=== PATIENT | female | born 1980 | race Caucasian/White ===

== ENCOUNTER → 2016-07-07 | Outpatient (CLI) | payer BC ==
[~2016-07-07] MED LIST: METOPROLOL TARTRATE 5 MG/5 ML VIAL IVP ONE
--- NOTE | 2016-07-07 11:28 | ECHOS ---
DATE OF SERVICE: 07/07/2016 AGE: 36Y SEX: F HT: 64" WT: 398 lbs. Protocol Dennis: Others: Stage: Dur. of Exercise: 3:35 minutes *Heart Rate Blood Pressure *Rest: 68 Rest: 164/67 * *Max. Achieved: 158 Maximum BP: 212/118 85% PMHR: 155 100% PMHR: 182 *METS: 5.2 INDICATIONS: Chest pain. MEDICATIONS: See list. Stress data: Pretesting physical examination showed heart rate of 68, pressure is 164/76 mmHg. Baseline EKG shows sinus mechanism. The patient exercised on the treadmill according to Dennis protocol for a total of 3 minutes and 55 seconds and achieved 5.2 METs. Max heart rate was 158, which is about 86% of maximal predicted heart rate with a maximum blood pressure 213/82 mm/Hg. Clinically the patient did not have any symptoms of chest pain or discomfort. The EKG did not show any significant ST or T wave abnormalities consistent with ischemia. Echocardiogram images: On echocardiogram images ( ) views, ( ) short axis view, apical 4 chambers and apical 2 chamber ( ) the baseline images, at the peak of the heart rate, as well as on recovery and the echocardiogram images showed good augmentation in left ventricular systolic function without any evidence of wall motion abnormalities consistent with ischemia. CONCLUSION: 1. Poor exercise capacity. 2. Normal EKG in response to exercise. 3. Normal echocardiogram in response to exercise. 4. Hypertension, exaggerated, hypertension in response to exercise.
== END | disposition home or self-care (01) ==
LOC: RADNMMAIN 08:37
PROVIDERS: ATTEND Family Medicine
DX: I10 Essential (primary) hypertension (principal)
CPT/HCPCS: 93017; 93350

== ENCOUNTER → 2016-12-14 | Outpatient (CLI) | payer BC ==
--- NOTE | 2016-12-14 10:49 | MM ---
Reason for exam: screening (asymptomatic). Baseline mammogram. Physical Findings: Nurse did not find any significant physical abnormalities on exam. MG 3D Screening Mammo W/Cad Bilateral CC and MLO view(s) were taken. There are scattered fibroglandular densities. There is no discrete abnormality. These results were verbally communicated with the patient and result sheet given to the patient on 12/14/16. ASSESSMENT: Negative, BI-RAD 1 RECOMMENDATION: Routine screening mammogram of both breasts at age 38.
== END ==
LOC: RADMAMWWP 09:26
PROVIDERS: ATTEND Family Medicine
DX: Z12.31 Encounter for screening mammogram for malignant neoplasm of breast (principal)
CPT/HCPCS: 77063; G0202

== ENCOUNTER 2017-08-07 20:22 | Emergency (ER) | payer BC ==
[2017-08-07 20:28] VITALS: RESP 18; TEMP 98.2
[2017-08-07 20:48] LABS: Glucose,Whole Blood 90 mg/dL (75-99)
[2017-08-07] MEDS ORDERED: diphenhydrAMINE 50 MG/ML 1 ML VIAL IVP STA (20:54)
[2017-08-07] MEDS ORDERED: PROMETHAZINE INJ 25 MG/ML 1 ML VIAL IVPB STA (20:54)
[2017-08-07] MEDS ORDERED: KETOROLAC 60 MG/2 ML VIAL IVP STA (20:54)
[2017-08-07] MEDS ORDERED: SODIUM CHLORIDE 0.9% 1,000 ML IV ONE (20:55)
--- NOTE | 2017-08-07 20:58 | ED ---
General Adult HPI - General Source: patient, family, RN notes reviewed Mode of arrival: wheelchair Limitations: no limitations <Addison Burk - Last Filed: 08/07/17 21:11> <Addison Locke - Last Filed: 08/07/17 22:51> - General Chief complaint: Neuro Symptoms/Deficit Stated complaint: migraine/trouble swallowing - History of Present Illness Initial comments: This is a 37-year-old female presents emergency Department stating she's had a history of migraine headaches with some left-sided paralysis in the past. Patient states this has happened to her 9 or 10 times in the past. Patient comes in today because it happened again today per patient states a few hours prior to arrival she started getting a headache and then she thought it difficult to move her left arm and leg though she could move it. Patient states currently she can move everything just fine she only has a little tingling left in her left leg. Patient states the headache is still ongoing. Patient denies any fever chills. Patient denies any neck pain. Patient denies any chest pain difficulty breathing shortness of breath. Patient denies any visual disturbance or speech disturbance. (Addison Burk) - Related Data Home Medications Medication Instructions Recorded Confirmed Propranolol HCl [Inderal LA] 80 mg PO HS 01/16/15 08/07/17 ALPRAZolam [Xanax] 0.25 mg PO Q8HR PRN 06/29/15 08/07/17 Cholecalciferol [Vitamin D3] 5,000 unit PO DAILY 01/31/16 08/07/17 Acetaminophen [Tylenol Extra 1,000 mg PO Q6H PRN 08/07/17 08/07/17 Strength] Esomeprazole Magnesium [NexIUM] 20 mg PO HS 08/07/17 08/07/17 Multivitamin [Multivitamins Adult 1 tab PO DAILY 08/07/17 08/07/17 Gummies] Vitamin B Complex 1 cap PO DAILY 08/07/17 08/07/17 Allergies Allergy/AdvReac Type Severity Reaction Status Date / Time No Known Allergies Allergy Verified 08/07/17 21:04 Review of Systems ROS Other: All systems not noted in ROS Statement are negative. <Addison Burk - Last Filed: 08/07/17 21:11> ROS Other: All systems not noted in ROS Statement are negative. <Addison Locke - Last Filed: 08/07/17 22:51> ROS Statement: Those systems with pertinent positive or pertinent negative responses have been documented in the HPI. Past Medical History Additional Past Medical History / Comment(s): enlarged lymph nodes in the neck, palpable and sore at times. Lots of upper respiratory infections since early 2013. Hx of Cellulitis of the neck. Migraines, Menaire's Disease History of Any Multi-Drug Resistant Organisms: None Reported Past Surgical History: Section, Tonsillectomy Additional Past Surgical History / Comment(s): hx - meniere's Past Anesthesia/Blood Transfusion Reactions: No Reported Reaction Past Psychological History: No Psychological Hx Reported Smoking Status: Former smoker Past Alcohol Use History: Occasional Past Drug Use History: Marijuana - Past Family History Mother Family Medical History: No Reported History <Addison Burk - Last Filed: 08/07/17 21:11> General Exam Limitations: no limitations <Addison Burk - Last Filed: 08/07/17 21:11> General appearance: alert, in no apparent distress Head exam: Present: atraumatic, normocephalic, normal inspection Eye exam: Present: normal appearance, PERRL, EOMI. Absent: scleral icterus, conjunctival injection, periorbital swelling ENT exam: Present: normal exam, mucous membranes moist Neck exam: Present: normal inspection. Absent: tenderness, meningismus, lymphadenopathy Respiratory exam: Present: normal lung sounds bilaterally. Absent: respiratory distress, wheezes, rales, rhonchi, stridor Cardiovascular Exam: Present: regular rate, normal rhythm, normal heart sounds. Absent: systolic murmur, diastolic murmur, rubs, gallop, clicks GI/Abdominal exam: Present: soft, normal bowel sounds. Absent: distended, tenderness, guarding, rebound, rigid Extremities exam: Present: normal inspection, full ROM, normal capillary refill. Absent: tenderness, pedal edema, joint swelling, calf tenderness Back exam: Present: normal inspection Neurological exam: Present: alert, oriented X3, CN II-XII intact Psychiatric exam: Present: normal affect, normal mood Skin exam: Present: warm, dry, intact, normal color. Absent: rash <Addison Locke - Last Filed: 08/07/17 22:51> - General Exam Comments Initial Comments: GENERAL: Patient is well-developed and well-nourished. Patient is nontoxic and well- hydrated and is in mild distress. ENT: Neck is soft and supple. No significant lymphadenopathy is noted. Oropharynx is clear. Moist mucous membranes. Neck has full range of motion without eliciting any pain. EYES: The sclera were anicteric and conjunctiva were pink and moist. Extraocular movements were intact and pupils were equal round and reactive to light. Eyelids were unremarkable. PULMONARY: Unlabored respirations. Good breath sounds bilaterally. No audible rales rhonchi or wheezing was noted. CARDIOVASCULAR: There is a regular rate and rhythm without any murmurs gallops or rubs. ABDOMEN: Soft and nontender with normal bowel sounds. No palpable organomegaly was noted. There is no palpable pulsatile mass. SKIN: Skin is clear with no lesions or rashes and otherwise unremarkable. NEUROLOGIC: Patient is alert and oriented x3. Cranial nerves II through XII are grossly intact. Motor and sensory are also intact. Normal speech, volume and content. Symmetrical smile. When testing for extraocular motion she had no light sensitivity and full range of motion MUSCULOSKELETAL: Normal extremities with adequate strength and full range of motion. No lower extremity swelling or edema. No calf tenderness. LYMPHATICS: No significant lymphadenopathy is noted PSYCHIATRIC: Normal psychiatric evaluation. (Addison Burk) NIH of 0 (Addison Locke) Course <Addison Burk - Last Filed: 08/07/17 21:11> <Addison Locke - Last Filed: 08/07/17 22:51> Vital Signs 08/07/17 20:23 Temperature 98.2 F Pulse Rate 67 Respiratory 18 Rate Blood Pressure 159/99 O2 Sat by Pulse 100 Oximetry - Reevaluation(s) Reevaluation #1: 08/07/17 22:50 Symptoms resolved (Addison Locke) Medical Decision Making <Addison Burk - Last Filed: 08/07/17 21:11> <Addison Locke - Last Filed: 08/07/17 22:51> - Medical Decision Making Dr. Locke will be taking care of this patient at 9 PM (Addison Burk) 37 female the ER for evaluation presents for evaluation of headache and neurological complaint. Multiple history of CTs. Symptoms resolved headache resolved patient can be discharged home (Addison Locke) - Lab Data Lab Results 08/07/17 Range/Units 20:43 POC Glucose (mg/dL) 90 (75-99) mg/dL POC Glu Wink Cutter Operator ID Reyna Doty Disposition <Addison Burk - Last Filed: 08/07/17 21:11> <Addison Locke - Last Filed: 08/07/17 22:51> Clinical Impression: Migraine headache Disposition: HOME SELF-CARE Condition: Good Instructions: Acute Headache (ED), Migraine Headache (ED) Referrals: Johnny Lynch MD [Primary Care Provider] - 1-2 days
[2017-08-07] MEDS ORDERED: PROMETHAZINE INJ 25 MG in SODIUM CHLORIDE 0.9% 50 ML IVPB ONE (21:00)
[2017-08-07 23:03] VITALS: BP 99/53; PULSE 65
== END 2017-08-07 23:02 | disposition home or self-care (01) ==
LOC: EC 20:22
DX: G43.909 Migraine, unspecified, not intractable, without status migrainosus (principal); R20.2 Paresthesia of skin; Z87.891 Personal history of nicotine dependence; Z79.899 Other long term (current) drug therapy
CPT/HCPCS: 36415; 93005; 99284; 96365; 96375 ×2; 96361; J1200; J2550; J1885

== ENCOUNTER → 2019-03-21 | Outpatient (CLI) | payer BC ==
--- NOTE | 2019-03-22 12:13 | MM ---
Reason for exam: screening (asymptomatic). Last mammogram was performed 2 years and 3 months ago. Physical Findings: A clinical breast exam by your physician is recommended on an annual basis and results should be correlated with mammographic findings. MG Screening Mammo w CAD Bilateral CC and MLO view(s) were taken. Prior study comparison: December 14, 2016, bilateral MG 3d screening mammo w/cad. The breast tissue is heterogeneously dense. This may lower the sensitivity of mammography. No significant changes when compared with prior studies. ASSESSMENT: Benign, BI-RAD 2 RECOMMENDATION: Routine screening mammogram of both breasts in 1 year.
== END | disposition home or self-care (01) ==
LOC: RADMAMWWP 16:07
PROVIDERS: ATTEND Family Medicine
DX: Z12.31 Encounter for screening mammogram for malignant neoplasm of breast (principal)
CPT/HCPCS: 77067

== ENCOUNTER 2020-01-02 09:06 | Emergency (ER) | payer BC ==
[2020-01-02 09:10] VITALS: TEMP 98.4
--- NOTE | 2020-01-02 09:22 | ED ---
SOB HPI - General Chief Complaint: Shortness of Breath Stated Complaint: SOB, weakness Time Seen by Provider: 01/02/20 09:12 Source: patient, RN notes reviewed, old records reviewed Mode of arrival: wheelchair Limitations: no limitations - History of Present Illness Initial Comments: Patient is a 39-year-old female presents today with shortness of breath cough and cold for the past week. Patient states that she was seen by her PCP 2 days ago and started on azithromycin. She states she's feeling worse improved since that time. Patient denies any vomiting but does complain of just some general nausea. 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 She states that she has had a burning pain with taking a deep breath in her lungs in the lower ribs. She reports that her symptoms initially started out with ear congestion and sore throat which seemed to settle into her lungs. She states that she is a former smoker and quit 6 months ago. She denies any previous cardiac history. - Related Data Home Medications Medication Instructions Recorded Confirmed Propranolol HCl [Inderal LA] 80 mg PO HS 01/16/15 01/02/20 ALPRAZolam [Xanax] 0.25 mg PO Q8HR PRN 06/29/15 01/02/20 Esomeprazole Magnesium [NexIUM] 20 mg PO HS 08/07/17 01/02/20 Atomoxetine HCl [Strattera] 18 mg PO DIRECTED 01/02/20 01/02/20 Atomoxetine HCl [Strattera] 25 mg PO DIRECTED 01/02/20 01/02/20 Azithromycin [Zithromax Z-pack] See Taper PO DIRECTED 01/02/20 01/02/20 Meclizine [Antivert] 12.5 mg PO Q8HR PRN 01/02/20 01/02/20 methylPREDNISolone [Medrol Dose See Taper PO DIRECTED 01/02/20 01/02/20 Pack] Previous Rx's Medication Instructions Recorded Albuterol Inhaler [Ventolin Hfa 1 puff INHALATION RT-QID #1 puff 01/02/20 Inhaler] Levofloxacin [Levaquin] 750 mg PO DAILY 5 Days #5 tab 01/02/20 predniSONE 50 mg PO DAILY #5 tab 01/02/20 Allergies Allergy/AdvReac Type Severity Reaction Status Date / Time No Known Allergies Allergy Verified 01/02/20 10:22 Review of Systems ROS Statement: Those systems with pertinent positive or pertinent negative responses have been documented in the HPI. ROS Other: All systems not noted in ROS Statement are negative. Past Medical History Additional Past Medical History / Comment(s): enlarged lymph nodes in the neck. Hx of Cellulitis of the neck. Migraines, Menaire's Disease History of Any Multi-Drug Resistant Organisms: None Reported Past Surgical History: Section, Tonsillectomy Additional Past Surgical History / Comment(s): hx - meniere's Past Anesthesia/Blood Transfusion Reactions: No Reported Reaction Past Psychological History: No Psychological Hx Reported Smoking Status: Former smoker Past Alcohol Use History: Occasional Past Drug Use History: Marijuana - Past Family History Mother Family Medical History: No Reported History General Exam - General Exam Comments Initial Comments: 39-year-old female. Alert and oriented. Limitations: no limitations General appearance: alert, in no apparent distress Head exam: Present: atraumatic, normocephalic, normal inspection Eye exam: Present: normal appearance, PERRL, EOMI. Absent: scleral icterus, conjunctival injection, periorbital swelling ENT exam: Present: normal exam, mucous membranes moist Neck exam: Present: normal inspection. Absent: tenderness, meningismus, lymphadenopathy Respiratory exam: Present: normal lung sounds bilaterally, other (No significant wheezing or diminished lung sounds at this time. Patient does have a dry cough.). Absent: respiratory distress, wheezes, rales, rhonchi, stridor Cardiovascular Exam: Present: regular rate, normal rhythm, normal heart sounds. Absent: systolic murmur, diastolic murmur, rubs, gallop, clicks GI/Abdominal exam: Present: soft, normal bowel sounds. Absent: distended, te nderness, guarding, rebound, rigid Extremities exam: Present: normal inspection, full ROM, normal capillary refill. Absent: tenderness, pedal edema, joint swelling, calf tenderness Back exam: Present: normal inspection Neurological exam: Present: alert, oriented X3, CN II-XII intact Psychiatric exam: Present: normal affect, normal mood Skin exam: Present: warm, dry, intact, normal color. Absent: rash Course Vital Signs 01/02/20 09:08 Temperature 98.4 F Pulse Rate 58 L Respiratory 18 Rate Blood Pressure 123/82 O2 Sat by Pulse 98 Oximetry Medical Decision Making - Medical Decision Making 39-year-old female presents emergency department today yet for concern for cough, shortness of breath for the past week. Patient at this time states that she's been more progressive cough and feeling more winded. 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 This time her vital signs of an stable oxygen sats have been 9800% on room air. Patient does have a dry cough. Her lungs are relatively clear no wheezing or diminished lung sounds bilaterally. Chest x-ray shows an increased airspace opacity on the left lung base. Patient's white blood cell count is mildly elevated at 14,000 but she does report that she was started on a Medrol Dosepak by her PCP this week. Patient and also is a former smoker. This initially given a dose of Rocephin to cover for community-acquired pneumonia. I discussed switching the antibiotic to Levaquin. Discussed case with Dr. Burk. Advised Patient she should still self quarantined until known positive or negative infection for Coban 19. Patient is agreeable to treatment plan will comply. - Lab Data Result diagrams: 01/02/20 09:32 01/02/20 09:32 Lab Results 01/02/20 01/02/20 01/02/20 Range/Units 09:32 09:32 09:32 WBC 14.3 H (3.8-10.6) k/uL RBC 4.54 (3.80-5.40) m/uL Hgb 13.6 (11.4-16.0) gm/dL Hct 41.5 (34.0-46.0) % MCV 91.3 (80.0-100.0) fL MCH 29.9 (25.0-35.0) pg MCHC 32.8 (31.0-37.0) g/dL RDW 12.3 (11.5-15.5) % Plt Count 237 (150-450) k/uL Neutrophils % 66 % Lymphocytes % 27 % Monocytes % 4 % Eosinophils % 1 % Basophils % 1 % Neutrophils # 9.4 H (1.3-7.7) k/uL Lymphocytes # 3.9 (1.0-4.8) k/uL Monocytes # 0.6 (0-1.0) k/uL Eosinophils # 0.1 (0-0.7) k/uL Basophils # 0.1 (0-0.2) k/uL PT 9.5 (9.0-12.0) sec INR 0.9 (<1.2) APTT 24.3 (22.0-30.0) sec D-Dimer 0.26 (<0.60) mg/L FEU Sodium 138 (137-145) mmol/L Potassium 3.8 (3.5-5.1) mmol/L Chloride 105 (98-107) mmol/L Carbon Dioxide 26 (22-30) mmol/L Anion Gap 7 mmol/L BUN 10 (7-17) mg/dL Creatinine 0.48 L (0.52-1.04) mg/dL Est GFR (CKD-EPI)AfAm >90 (>60 ml/min/1.73 sqM) Est GFR (CKD-EPI)NonAf >90 (>60 ml/min/1.73 sqM) Glucose 92 (74-99) mg/dL Plasma Lactic Acid Dawson (0.7-2.0) mmol/L Calcium 9.5 (8.4-10.2) mg/dL Magnesium 2.1 (1.6-2.3) mg/dL Total Bilirubin 0.3 (0.2-1.3) mg/dL AST 18 (14-36) U/L ALT 12 (4-34) U/L Alkaline Phosphatase 72 (38-126) U/L Lactate Dehydrogenase 348 (313-618) U/L C-Reactive Protein <5.0 (<10.0) mg/L Total Protein 6.8 (6.3-8.2) g/dL Albumin 3.9 (3.5-5.0) g/dL 01/02/20 Range/Units 09:32 WBC (3.8-10.6) k/uL RBC (3.80-5.40) m/uL Hgb (11.4-16.0) gm/dL Hct (34.0-46.0) % MCV (80.0-100.0) fL MCH (25.0-35.0) pg MCHC (31.0-37.0) g/dL RDW (11.5-15.5) % Plt Count (150-450) k/uL Neutrophils % % Lymphocytes % % Monocytes % % Eosinophils % % Basophils % % Neutrophils # (1.3-7.7) k/uL Lymphocytes # (1.0-4.8) k/uL Monocytes # (0-1.0) k/uL Eosinophils # (0-0.7) k/uL Basophils # (0-0.2) k/uL PT (9.0-12.0) sec INR (<1.2) APTT (22.0-30.0) sec D-Dimer (<0.60) mg/L FEU Sodium (137-145) mmol/L Potassium (3.5-5.1) mmol/L Chloride (98-107) mmol/L Carbon Dioxide (22-30) mmol/L Anion Gap mmol/L BUN (7-17) mg/dL Creatinine (0.52-1.04) mg/dL Est GFR (CKD-EPI)AfAm (>60 ml/min/1.73 sqM) Est GFR (CKD-EPI)NonAf (>60 ml/min/1.73 sqM) Glucose (74-99) mg/dL Plasma Lactic Acid Dawson 1.3 (0.7-2.0) mmol/L Calcium (8.4-10.2) mg/dL Magnesium (1.6-2.3) mg/dL Total Bilirubin (0.2-1.3) mg/dL AST (14-36) U/L ALT (4-34) U/L Alkaline Phosphatase (38-126) U/L Lactate Dehydrogenase (313-618) U/L C-Reactive Protein (<10.0) mg/L Total Protein (6.3-8.2) g/dL Albumin (3.5-5.0) g/dL 01/02/20 09:41 EKG performed at 9:36 AM shows sinus bradycardia otherwise normal EKG. Ventricular rate of 52 bpm. [place] interval is 152 ms. QS duration is 100 ms. QT QTc is 442/411 ms. - Radiology Data Radiology results: report reviewed Chest x-ray shows asymmetric airspace opacity over the left lung base. Disposition Clinical Impression: Pneumonia Disposition: HOME SELF-CARE Condition: Good Instructions (If sedation given, give patient instructions): Pneumonia (ED) Additional Instructions: Take the meds as prescribed. Follow-up with your primary care physician. Return to the emergency department if any alarming signs or symptoms occur. Prescriptions: Levofloxacin [Levaquin] 750 mg PO DAILY 5 Days #5 tab predniSONE 50 mg PO DAILY #5 tab Albuterol Inhaler [Ventolin Hfa Inhaler] 1 puff INHALATION RT-QID #1 puff Is patient prescribed a controlled substance at d/c from ED?: No Referrals: Johnny Lynch MD [Primary Care Provider] - 1-2 days Time of Disposition: 11:09
[2020-01-02 09:42] LABS: Basophils # (A) 0.1 k/uL (0-0.2); Basophils % (A) 1 %; Eosinophils # (A) 0.1 k/uL (0-0.7); Eosinophils % (A) 1 %; HCT 41.5 % (34.0-46.0); HGB 13.6 gm/dL (11.4-16.0); Lymphocytes # (A) 3.9 k/uL (1.0-4.8); Lymphocytes % (A) 27 %; MCH 29.9 pg (25.0-35.0); MCHC 32.8 g/dL (31.0-37.0); MCV 91.3 fL (80.0-100.0); Mean Platelet Volume 8.4; Monocytes # (A) 0.6 k/uL (0-1.0); Monocytes % (A) 4 %; Neutrophils # (A) 9.4 k/uL (1.3-7.7); Neutrophils % (A) 66 %; Platelet Count 237 k/uL (150-450); RBC 4.54 m/uL (3.80-5.40); RDW 12.3 % (11.5-15.5); WBC 14.3 k/uL (3.8-10.6)
[2020-01-02 09:54] LABS: ALT 12 U/L (4-34); AST 18 U/L (14-36); African American GFR (CKD) >90 (>60 ml/min/1.73 sqM); Albumin 3.9 g/dL (3.5-5.0); Alkaline Phosphatase 72 U/L (38-126); Anion Gap 7 mmol/L; Blood Urea Nitrogen 10 mg/dL (7-17); C Reactive Protein <5.0 mg/L (<10.0); Calcium 9.5 mg/dL (8.4-10.2); Carbon Dioxide 26 mmol/L (22-30); Chloride 105 mmol/L (98-107); Glucose 92 mg/dL (74-99); LDH 348 U/L (313-618); Magnesium 2.1 mg/dL (1.6-2.3); Non-African American GFR(CKD) >90 (>60 ml/min/1.73 sqM); Potassium 3.8 mmol/L (3.5-5.1); Sodium 138 mmol/L (137-145); Total Bilirubin 0.3 mg/dL (0.2-1.3); Total Protein 6.8 g/dL (6.3-8.2)
[2020-01-02 09:59] LABS: D-Dimer 0.26 mg/L FEU (<0.60); INR 0.9 (<1.2); Partial Thromboplastin Time 24.3 sec (22.0-30.0); Prothrombin Time 9.5 sec (9.0-12.0)
--- NOTE | 2020-01-02 10:17 | XR ---
EXAMINATION TYPE: XR chest 1V portable DATE OF EXAM: 01/02/2020 CLINICAL HISTORY: Possible Covid 19 pneumonia. TECHNIQUE: Frontal portable view of the chest obtained. COMPARISON: Chest radiograph 07/04/2014 FINDINGS: The cardiomediastinal silhouette is within normal limits for size. Pulmonary vasculature i s normal. There is overlying soft tissue density overlapping the bilateral lung bases. There is asymm etric opacity over the late left lung base. No pleural effusion or pneumothorax seen. The osseous str uctures are intact. IMPRESSION: Asymmetric airspace opacity over the left lung base.
[2020-01-02] MEDS ORDERED: cefTRIAXone IN SWFI 1,000 MG/10 ML SYRINGE IVP STA (10:56)
[2020-01-02 11:34] VITALS: BP 125/80; PULSE 69; RESP 22
[2020-01-02 16:18] LABS: Ferritin 42.8 ng/mL (10.0-291.0)
== END 2020-01-02 11:46 | disposition home or self-care (01) ==
LOC: EC 09:06
DX: J18.9 Pneumonia, unspecified organism (principal); Z79.899 Other long term (current) drug therapy; Z87.891 Personal history of nicotine dependence
CPT/HCPCS: 36415; 71045; 80053; 82728; 83605; 83615; 83735; 84145; 85025; 85379; 85610; 85730; 86140; 87040; 93005; 96374; 99285

== ENCOUNTER → 2020-03-04 | Outpatient (CLI) | payer BC ==
[2020-03-04 08:00] LABS: Basophils # (A) 0.1 k/uL (0-0.2); Basophils % (A) 1 %; Eosinophils # (A) 0.1 k/uL (0-0.7); Eosinophils % (A) 1 %; Lymphocytes # (A) 3.1 k/uL (1.0-4.8); Lymphocytes % (A) 33 %; MCH 30.6 pg (25.0-35.0); MCHC 32.6 g/dL (31.0-37.0); MCV 93.9 fL (80.0-100.0); Mean Platelet Volume 8.3; Monocytes # (A) 0.5 k/uL (0-1.0); Monocytes % (A) 5 %; Neutrophils # (A) 5.6 k/uL (1.3-7.7); Neutrophils % (A) 59 %; Platelet Count 211 k/uL (150-450); RBC 4.58 m/uL (3.80-5.40); RDW 12.2 % (11.5-15.5); WBC 9.4 k/uL (3.8-10.6)
== END | disposition home or self-care (01) ==
LOC: LABWHC1 07:03
PROVIDERS: ATTEND Obstetrics & Gynecology Obstetrics
DX: Z01.818 Encounter for other preprocedural examination (principal); N92.0 Excessive and frequent menstruation with regular cycle; Z30.2 Encounter for sterilization
CPT/HCPCS: 36415; 85025

== ENCOUNTER 2020-03-10 09:24 | Day surgery (SDC) | payer BC ==
[2020-03-06 11:37] VITALS: BMI 53.1
[~2020-03-10 09:24] MED LIST changes: +DEXAMETHASONE SOD PHOSPHATE 10 MG/ML 1 ML VIAL IV ONE; +HYDROmorphone 0.5 MG/0.5 ML SYRINGE IVP PRN; +LACTATED RINGERS 1,000 ML IV SCH; -METOPROLOL TARTRATE 5 MG/5 ML VIAL IVP ONE; +ONDANSETRON 4 MG/2 ML VIAL IVP ONE; +Pre Op ABX Message 1 EACH MISC MISCELLANE ONE; +SCOPOLAMINE 1.5MG/72HR PATCH TRANSDERM ONE
[2020-03-10] MEDS ORDERED: SILVER NITRATE APPLICATOR 1 EACH STICK..EA. TOPICAL ONE (09:45)
[2020-03-10] MEDS ORDERED: BUPIVACAINE (PF) 0.25% 30 ML VIAL SQ ONE ×2 (09:45)
[2020-03-10] MEDS ORDERED: LIDOCAINE URO-JET JELLY 2% 5 ML KIT URETHRAL ONE (09:45)
[2020-03-10] MEDS ORDERED: ROCURONIUM 10 MG/ML (10 ML VIAL) IV ONE (10:23)
[2020-03-10] MEDS ORDERED: GLYCOPYRROLATE 0.2 MG/ML 2 ML VIAL ONE (10:23)
[2020-03-10] MEDS ORDERED: ALBUTEROL INHALER 60 PUFF/8 GM INHALER (MHU) INHALATION ONE (10:23)
[2020-03-10] MEDS ORDERED: fentaNYL (PF) 50 MCG/ML 2 ML AMP ONE (10:23)
[2020-03-10] MEDS ORDERED: NEOSTIGMINE 1 MG/ML 10 ML VIAL ONE (10:23)
[2020-03-10] MEDS ORDERED: HYDROmorphone (PF) 1 MG/ML ONE (10:23)
[2020-03-10] MEDS ORDERED: ACETAMINOPHEN IV (For NPO) 1,000 MG/100 ML VIAL ONE (10:23)
[2020-03-10] MEDS ORDERED: PROPOFOL 10 MG/ML 20 ML VIAL IV ONE (10:23)
[2020-03-10] MEDS ORDERED: diphenhydrAMINE 50 MG/ML 1 ML VIAL ONE (10:23)
[2020-03-10] MEDS ORDERED: MIDAZOLAM 2 MG/2 ML VIAL ONE (10:23)
[2020-03-10] MEDS ORDERED: SUCCINYLCHOLINE CHLORIDE 100 MG/5 ML SYR IV ONE (10:23)
--- NOTE | 2020-03-10 11:19 | P.OP ---
Date of Procedure: 03/10/20 Procedure(s) Performed: PREOPERATIVE DIAGNOSIS: Morbid obesity POSTOPERATIVE DIAGNOSIS: Same PROCEDURE: Laparoscopy, initiation of pneumoperitoneum SURGEON: Radha EBL: Minimal ANESTHESIA: General COMPLICATIONS: None OPERATIVE PROCEDURE: Patient was in the operating room for planned tubal ligation by gynecology. Prior to my arrival attempts at pneumoperitoneum through an umbilical approach was unsuccessful. I was called to assist with obtaining pneumoperitoneum. A small 5 mm incision was made in the left upper quadrant at that time. Entrance into the perineal cavity occurred using the optical trocar. As we initiated pneumoperitoneum we identified that the trocar was then easily omentum. The omentum was noted to drop away from the abdominal wall with further insufflation. No bleeding or bile was noted in the vicinity. The umbilical site was inspected. There was no evidence of any peritoneal penetration from the previous attempts. The remainder of the case will be dictated by Dr. Nelson. DISPOSITION: Stable to recovery room
--- NOTE | 2020-03-10 11:43 | P.OP ---
Date of Procedure: 03/10/20 Preoperative Diagnosis: Family status complete, menorrhagia Postoperative Diagnosis: Same Procedure(s) Performed: Laparoscopic tubal ligation with Filshie clips, hysteroscopy, dilation and curettage, endometrial ablation, NovaSure Anesthesia: SHADE Surgeon: Selam Nelson Estimated Blood Loss (ml): 15 IV fluids (ml): 800 Urine output (ml): 100 Pathology: other (Endometrial curettings) Condition: stable Disposition: PACU Indications for Procedure: Heavy menstrual bleeding. Operative Findings: Morbidly obese abdomen. With attempted umbilical entry to the abdomen subcutaneous bleeding was noted stable at end of procedure. Uterus noted to be slightly enlarged, normal ovaries were appreciated, right hemorrhagic ovarian cyst is appreciated. Description of Procedure: Patient was taken back to the operating suite where general anesthesia was obtained without difficulty by the anesthesia department. She was prepped and draped in the normal sterile fashion in the dorsal lithotomy position. A weighted speculum was placed in the posterior vaginal vault, the anterior lip of the cervix is visualized and grasped with a single-tooth tenaculum. An acorn uterine manipulator was advanced into the cervix as a means to manipulate during the tubal ligation. Attention then turned the abdomen where lateral to the umbilicus a small skin incision is made through this incision the Veress needles placed. Failed attempt at entry with varies placement. An additional 2 attempts of a visual entry with the trocar were attempted, bleeding in the subcutaneous tissue was noted, therefore Dr. Garcia entered the operating suite to enter the abdomen and the left upper quadrant. Small hematoma/bruising was noted on the right lateral abdomen from prior entry. Stable at the end of the procedure. An additional port site was placed in the right lateral abdomen under direct visualization. The Filshie clip applicator was opened and both fallopian tubes were occluded per acoustical tile drill press operator's instruction. Small amount of bleeding was noted from the right lateral site was removed. No further bleeding was noted at the end of the procedure. CO2 was turned off and no further bleeding was noted. All instrument removed from the patient's abdomen at this time. Skin incisions were closed with 4-0 Vicryl in a subarticular fashion. Suture strips and sterile dressings were applied. Lidocaine was then instilled at the incision sites. Attention then turned the patient's vaginal vault where the acorn uterine manipulator was removed without difficulty. The endocervical canal was dilated to 18-Italian. A hysteroscope was placed through the cervix and toward the uterus intact cavity was noted with no appreciable Juwan male these. At this time the NovaSure device was opened. A sharp curettage was performed at this time. The NovaSure was set to the appropriate measurements for the patient's uterus. After the cavity assessment was passed the cycle was allowed to complete. Afterwards the NovaSure was removed without difficulty. The single-tooth tenaculum was taken off of the anterior lip of the cervix. Hemostasis was appreciated. All counts were noted to be correct 2 at the end of this procedure. Patient was taken to the recovery room awake in stable condition.
[2020-03-10] MEDS ORDERED: LACTATED RINGERS 1,000 ML IV ONE (11:59)
[2020-03-10 12:04] VITALS: TEMP 97.3
[2020-03-10] MEDS ORDERED: ONDANSETRON 4 MG/2 ML VIAL IVP ONE (12:18)
[2020-03-10 12:23] VITALS: RESP 16
[2020-03-10 13:27] VITALS: BP 135/78; PULSE 63
== END 2020-03-10 13:32 | disposition home or self-care (01) ==
LOC: OR 09:24
PROVIDERS: ATTEND Obstetrics & Gynecology Obstetrics
DX: N92.0 Excessive and frequent menstruation with regular cycle (principal); Z30.2 Encounter for sterilization; K66.8 Other specified disorders of peritoneum; N83.201 Unspecified ovarian cyst, right side; F41.9 Anxiety disorder, unspecified; G43.909 Migraine, unspecified, not intractable, without status migrainosus; G35 Multiple sclerosis; E66.01 Morbid (severe) obesity due to excess calories; H81.09 Meniere's disease, unspecified ear; R59.1 Generalized enlarged lymph nodes; Z98.84 Bariatric surgery status; Z79.899 Other long term (current) drug therapy; Z98.891 History of uterine scar from previous surgery; Z87.891 Personal history of nicotine dependence; Z68.43 Body mass index [BMI] 50.0-59.9, adult
CPT/HCPCS: 58563; 58671; 81025; 88305; J2250; J1200; J1100; J2710; J2405; J3010; J1170 ×2; J0131; J0330; J2704

== ENCOUNTER → 2021-06-12 | Outpatient (CLI) | payer BC ==
--- NOTE | 2021-06-12 15:10 | US ---
EXAMINATION TYPE: US thyroid st tissue head/neck DATE OF EXAM: 06/12/2021 COMPARISON: US CLINICAL HISTORY: R22.1 Lump in Neck. Palpable midline lower neck and inferior to thyroid. GLAND SIZE: Right Lobe: 5.3 x 1.8 x 1.7 cm Overall Parenchyma: homogenous Left Lobe: 5.0 x 1.7 x 1.1 cm Overall Parenchyma: homogeneous Isthmus Thickness: 0.7 cm NODULES RIGHT: # of nodules measured on right: 0 LEFT: # of nodules measured on left: 1 1. 0.5 X 0.3 x 0.4 cm, upper pole, mixed, hypoechoic nodule, which is taller than wide, with ill-de fined margins, without echogenic foci. ISTHMUS: # of nodules measured in the isthmus: 0 Bilateral neck scanned: no evidence of lymphadenopathy. US findings at midline inferior neck palpable: thicker subcutaneous tissue is seen, but no solid or c ystic mass is noted by US. IMPRESSION: 1. Subcentimeter nodule left lobe thyroid. 2017 ACR TI-RADS LEVEL: TR-RADS 3 - Mildly Suspicious: Follow if > 1.5 cm, FNA if > 2.5 cm *Highest TI-RADS level nodule reported
== END | disposition home or self-care (01) ==
LOC: RADUSWWP 07:30
PROVIDERS: ATTEND Family Medicine
DX: E04.1 Nontoxic single thyroid nodule (principal)
CPT/HCPCS: 76536

== ENCOUNTER → 2022-06-15 | Outpatient (CLI) | payer BC ==
--- NOTE | 2022-06-15 09:51 | CT ---
EXAMINATION TYPE: CT abdomen wo con CT DLP: 1764.6 mGycm, Automated exposure control for dose reduction was used. DATE OF EXAM: 06/15/2022 8:17 AM COMPARISON: CT abdomen pelvis most recent from 01/16/2015. CLINICAL INDICATION:Female, 42 years old with history of R11.0 Z98.84 R10.84; epigastric pain and n ausea x2 weeks TECHNIQUE: Standard CT of the abdomen without IV or oral contrast. Lack of IV or oral contrast limi ts evaluation of solid and hollow organ viscera. Coronal and sagittal reformats were performed. FINDINGS: LOWER CHEST: Unremarkable ABDOMEN LIVER: Unremarkable noncontrast appearance GALLBLADDER AND BILE DUCTS: Unremarkable. PANCREAS: Unremarkable noncontrast appearance SPLEEN: Unremarkable noncontrast appearance ADRENAL GLANDS: Unremarkable noncontrast appearance of the right adrenal gland. Stable thickening of the left adrenal gland dating back to 2014. KIDNEYS AND URETERS: No evidence of hydronephrosis or renal calculus. 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 The duodenum is unremarkable. No focal w all thickening or surrounding inflammatory changes. The appendix is within normal limits. No evidence of bowel obstruction. PERITONEUM: No evidence of pneumoperitoneum or free fluid. VASCULATURE: No evidence of aortic aneurysm. MUSCULOSKELETAL: No acute osseous abnormalities. Grade 1 anterolisthesis of L4 on L5 without evidence of pars defects. Multilevel Schmorl's nodes. LYMPH NODES: No gross evidence for lymphadenopathy. SOFT TISSUE/ABDOMINAL WALL: Small fat filled umbilical hernia. IMPRESSION: No acute abdominal process. No CT abnormality corresponding to patient's symptomology.
== END | disposition home or self-care (01) ==
LOC: RADCTMAIN 07:58
PROVIDERS: ATTEND Family Medicine
DX: R11.0 Nausea (principal); R10.84 Generalized abdominal pain; Z98.84 Bariatric surgery status
CPT/HCPCS: 74150

== ENCOUNTER → 2024-03-27 | Outpatient (CLI) | payer BC ==
--- NOTE | 2024-03-28 08:46 | US ---
EXAMINATION TYPE: US venous doppler duplex LE RT DATE OF EXAM: 03/27/2024 4:21 PM COMPARISON: NONE CLINICAL INDICATION: Female, 43 years old with history of M79.604 PAIN IN RIGHT LEG; , Pain, Swelling TECHNIQUE: The lower extremity deep venous system is examined utilizing real time linear array sonog john with graded compression, color doppler sonography, and spectral doppler. SIDE PERFORMED: Right FINDINGS: VESSELS IMAGED: Common Femoral Vein Deep Femoral Vein Greater Saphenous Vein * Femoral Vein Popliteal Vein Small Saphenous Vein * Proximal Calf Veins (* superficial vessels) Right Leg: Appears negative for DVT IMPRESSION: No evidence of deep vein thrombosis of the right lower extremity. [facility], , 03/28/2024 8:43 AM
== END | disposition home or self-care (01) ==
LOC: RADUSWWP 15:55
PROVIDERS: ATTEND Family Medicine